=== PATIENT | male | born 1965 | race Caucasian/White ===

== ENCOUNTER 2019-02-05 08:03 | Emergency (ER) | payer MEDICAID ==
[~2019-02-05] VITALS: Ht 177.8 cm; Wt 81.6 kg
[~2019-02-05 08:03] MED LIST: PAR20T
[2019-02-05 08:18] VITALS: BP 133/89
== END 2019-02-05 10:55 | disposition home or self-care (01) ==
LOC: ER 08:03 → EDBD 08:03 → ER 10:55
DX: L02.413 Cutaneous abscess of right upper limb (principal); E78.5 Hyperlipidemia, unspecified; I10 Essential (primary) hypertension; F17.210 Nicotine dependence, cigarettes, uncomplicated